=== PATIENT | female | born 1985 | race African-American/Black ===

== ENCOUNTER 2021-01-10 14:30 | Inpatient (IN) ==
[2021-01-10] MEDS ORDERED: FUROSEMIDE 40 MG/4 ML VIAL IV STA (19:13)
[2021-01-10 20:00] LABS: Bilirubin,Urine Negative (Negative); Blood, Urine Negative (Negative); Glucose,Urine (UA) Negative (Negative); Ketones,Urine Negative (Negative); Mucus,Urine Occasional /LPF (Occasional); Nitrite,Urine Negative (Negative); Protein,Urine 30 MG/DL; RBC,Urine 2 /HPF (0-4); Squamous Epithelial Cell,Urine Occasional /HPF (0-10); Urine Appearance CLEAR (Clear); Urine Color Yellow (Yellow); Urine Specific Gravity 1.012 (1.001-1.035)
[2021-01-10 20:17] LABS: Basophils % 0.1 % (0.0-0.8); Eosinophils # 0.1 10*3/uL (0.0-0.87); Eosinophils % 0.5 % (0.00-10.9); Immature Granulocytes % 0.7 %; Immature Granulocytes Absolute 0.08 #; Lymphocytes # 1.5 10*3/uL (1.4-4.0); Lymphocytes % 12.6 % (21.3-54.2); Mean Corpuscular HGB Conc 26.7 GM/DL (32-36); Mean Corpuscular Volume 83.3 FL (87-102); Mean Platelet Volume 10.7 FL (9.6-12.0); Monocytes % 7.5 % (1.7-12.7); NRBC # 0.06 10*3/uL; Neutrophils % 78.6 % (38.7-73.9); Platelet Count 685 T/CUMM (130-400); Red Blood Count 1.44 MC/CUMM (3.8-5.5); Red Cell Distribution Width 26.1 % (9.3-17.3); White Blood Count 12.1 T/CUMM (4-12)
[2021-01-10 20:28] LABS: Alanine Aminotransferase 30 U/L (13-56); Albumin 3.1 G/DL (3.4-5.0); Alkaline Phosphatase 130 U/L (45-117); Aspartate Amino Transferase 40 U/L (0-37); Blood Urea Nitrogen 4 MG/DL (7-18); Calcium 8.5 MG/DL (8.5-10.1); Carbon Dioxide 26 MMOL/L (21-32); Estimated Glom Filtration Rate 133 ML/MIN; Glucose 90 MG/DL (74-106); Osmolality,Calculated 275.4 MOS/KG (273-304); Potassium 3.2 MMOL/L (3.5-5.1); Sodium 140 MMOL/L (136-145); Total Protein 7.1 G/DL (6.4-8.2)
[2021-01-10 20:36] LABS: Hemoglobin 3.2 GM/DL (12.0-16.0)
[2021-01-10] MEDS ORDERED: SODIUM CHLORIDE 0.9% 1,000 ML IV PRN (21:26)
[2021-01-10] MEDS ORDERED: MAGNESIUM SULF RIDER 4 GM/100 ML PREMIX IV PRN (22:13)
[2021-01-10] MEDS ORDERED: ACETAMINOPHEN 325 MG TABLET PO PRN (22:13)
[2021-01-10] MEDS ORDERED: MAGNESIUM SULF RIDER 2 GM/50 ML PREMIX IV PRN (22:13)
[2021-01-10 22:56] LABS: Folate 10.89 NG/ML (5.38-24.0); Vitamin B12 494 PG/ML (211-911)
[2021-01-10] MEDS ORDERED: LORazepam 2 MG/1 ML VIAL IV PRN (23:28)
[2021-01-10] MEDS ORDERED: LORazepam 1 MG TABLET PO PRN (23:28)
[2021-01-10 23:43] LABS: Eosinophils % 0.4 % (0.00-10.9); Immature Granulocytes % 0.6 %; Immature Granulocytes Absolute 0.06 #; Lymphocytes # 1.2 10*3/uL (1.4-4.0); Lymphocytes % 12.1 % (21.3-54.2); Mean Corpuscular HGB Conc 27.2 GM/DL (32-36); Mean Corpuscular Volume 83.8 FL (87-102); Mean Platelet Volume 10.5 FL (9.6-12.0); Monocytes % 8.3 % (1.7-12.7); NRBC # 0.09 10*3/uL; Neutrophils % 78.6 % (38.7-73.9); Platelet Count 580 T/CUMM (130-400); Red Blood Count 1.36 MC/CUMM (3.8-5.5); Red Cell Distribution Width 24.8 % (9.3-17.3); White Blood Count 9.9 T/CUMM (4-12)
[2021-01-10 23:46] LABS: Hematocrit 11.4 VOL% (35.7-47.0); Hemoglobin 3.1 GM/DL (12.0-16.0)
[2021-01-11 00:48] LABS: Sedimentation Rate-Westergren 85 MM/HR (0-20)
[2021-01-11 06:42] LABS: Basophils % 0.1 % (0.0-0.8); Eosinophils # 0.1 10*3/uL (0.0-0.87); Eosinophils % 0.8 % (0.00-10.9); Immature Granulocytes % 0.8 %; Immature Granulocytes Absolute 0.07 #; Lymphocytes # 1.1 10*3/uL (1.4-4.0); Lymphocytes % 12.6 % (21.3-54.2); Mean Corpuscular HGB Conc 29.2 GM/DL (32-36); Mean Corpuscular Volume 83.4 FL (87-102); Mean Platelet Volume 10.8 FL (9.6-12.0); NRBC # 0.05 10*3/uL; Neutrophils % 76.7 % (38.7-73.9); Platelet Count 552 T/CUMM (130-400); Red Cell Distribution Width 19.9 % (9.3-17.3)
[2021-01-11 06:52] LABS: Hematocrit 17.1 VOL% (35.7-47.0)
[2021-01-11 06:53] LABS: Red Blood Count 2.05 MC/CUMM (3.8-5.5)
[2021-01-11 07:19] LABS: Albumin 2.7 G/DL (3.4-5.0); Bilirubin,Total 1.2 MG/DL (0.20-1.00); Calcium 8.3 MG/DL (8.5-10.1); Osmolality,Calculated 275.4 MOS/KG (273-304); Potassium 3.1 MMOL/L (3.5-5.1); Total Protein 6.3 G/DL (6.4-8.2)
[2021-01-11] MEDS ORDERED: SODIUM CHLORIDE 0.9% 1,000 ML IV PRN (07:36)
[2021-01-11 08:26] LABS: Hemoglobin A1 (Alkaline) 98.4 % (96.5-98.5); Hemoglobin A2 (Alkaline) 1.6 % (1.5-3.5)
[2021-01-11] MEDS: FUROSEMIDE 40 MG/4 ML VIAL IV SCH ×2 (08:42→16:27)
[2021-01-11] MEDS ORDERED: PANTOPRAZOLE 40 MG TABLET PO SCH (09:00)
[2021-01-11] MEDS: THIAMINE 100 MG TABLET PO SCH (09:15)
[2021-01-11] MEDS: MULTIVITAMIN (CENTRUM) TABLET PO SCH (09:15)
[2021-01-11] MEDS: FOLIC ACID 1 MG TABLET PO SCH (09:15)
[2021-01-11 13:30] LABS: % Iron Saturation 8.5 % (18-50); Ferritin 7.8 ng/mL (8-252)
[2021-01-11 16:09] LABS: Hematocrit 27.3 VOL% (35.7-47.0)
[2021-01-11 16:21] LABS: Hemoglobin 8.4 GM/DL (12.0-16.0)
[2021-01-11] MEDS: FERRIC GLUCONATE COMPLEX 125 MG in SODIUM CHLORIDE 0.9% 100 ML IV SCH (16:31)
[2021-01-11 19:51] LABS: Hematocrit 26.2 VOL% (35.7-47.0); Hemoglobin 8.1 GM/DL (12.0-16.0)
[2021-01-11] MEDS: PANTOPRAZOLE 40 MG VIAL IV SCH (21:12)
[2021-01-12 05:32] LABS: Basophils % 0.2 % (0.0-0.8); Eosinophils # 0.1 10*3/uL (0.0-0.87); Eosinophils % 0.8 % (0.00-10.9); Hematocrit 25.7 VOL% (35.7-47.0); Hemoglobin 7.9 GM/DL (12.0-16.0); Immature Granulocytes % 1.1 %; Lymphocytes # 1.1 10*3/uL (1.4-4.0); Lymphocytes % 11.8 % (21.3-54.2); Mean Corpuscular HGB Conc 30.7 GM/DL (32-36); Mean Corpuscular Volume 82.6 FL (87-102); Mean Platelet Volume 10.8 FL (9.6-12.0); Monocytes % 8.3 % (1.7-12.7); NRBC # 0.08 10*3/uL; Neutrophils % 77.8 % (38.7-73.9); Platelet Count 495 T/CUMM (130-400); Red Blood Count 3.11 MC/CUMM (3.8-5.5); Red Cell Distribution Width 18.5 % (9.3-17.3); White Blood Count 9.5 T/CUMM (4-12)
[2021-01-12 05:54] LABS: Calcium 7.7 MG/DL (8.5-10.1); Osmolality,Calculated 278.1 MOS/KG (273-304); Potassium 2.8 MMOL/L (3.5-5.1)
[2021-01-12 05:56] LABS: Hypochromasia 2+; Microcytosis 1+; Platelet Estimate Adequate
[2021-01-12] MEDS ORDERED: POTASSIUM CHLORIDE 20 MEQ TABLET PO PRN (06:03)
[2021-01-12 06:04] LABS: Bilirubin,Direct 0.68 MG/DL (0.0-0.20); Bilirubin,Indirect 0.6 MG/DL (0.0-1.0); Bilirubin,Total 1.3 MG/DL (0.20-1.00)
[2021-01-12] MEDS ORDERED: POTASSIUM CHLORIDE 20 MEQ TABLET PO ONE (07:19)
[2021-01-12] MEDS ORDERED: POTASSIUM CHLORIDE 20 MEQ TABLET PO SCH (09:00)
[2021-01-12] MEDS: FOLIC ACID 1 MG TABLET PO SCH (10:10)
[2021-01-12] MEDS: THIAMINE 100 MG TABLET PO SCH (10:10)
[2021-01-12] MEDS: MULTIVITAMIN (CENTRUM) TABLET PO SCH (10:10)
[2021-01-12] MEDS: PANTOPRAZOLE 40 MG VIAL IV SCH (10:11)
[2021-01-12] MEDS: FUROSEMIDE 40 MG/4 ML VIAL IV SCH (10:12)
[2021-01-12] MEDS: FERRIC GLUCONATE COMPLEX 125 MG in SODIUM CHLORIDE 0.9% 100 ML IV SCH (11:13)
[2021-01-12 12:10] VITALS: BP 120/68
[2021-01-12 12:18] LABS: Hematocrit 29.5 VOL% (35.7-47.0); Hemoglobin 8.9 GM/DL (12.0-16.0)
[2021-01-12 14:01] LABS: Calcium 7.9 MG/DL (8.5-10.1); Osmolality,Calculated 278.3 MOS/KG (273-304); Potassium 3.3 MMOL/L (3.5-5.1)
== END 2021-01-12 16:50 | disposition home or self-care (01) | DRG 811 ==
LOC: N.ED 14:30 → N.EDINP 22:13 → N.TELES 01-11 15:46
PROVIDERS: ADMIT Emergency Medicine; ATTEND Emergency Medicine